=== PATIENT | male | born 1985 | race Caucasian/White ===

== ENCOUNTER 2017-08-29 06:25 | Emergency (ER) | payer OTHER ==
[2017-08-29 06:34] VITALS: RESP 18; TEMP 98
[2017-08-29 06:53] LABS: Appearance,Urine Clear (Clear); Bilirubin,Urine Negative (Negative); Blood,Urine Moderate (Negative); Color,Urine Yellow; Glucose,Urine (UA) Negative (Negative); Ketones,Urine Negative (Negative); Leukocyte Esterase,Urine Negative (Negative); Mucus,Urine Rare /hpf; Nitrite,Urine Negative (Negative); Protein,Urine Negative (Negative); RBC,Urine 136 /hpf (0-5); Specific Gravity,Urine 1.022 (1.001-1.035); Urobilinogen,Urine <2.0 mg/dL (<2.0); WBC,Urine 5 /hpf (0-5)
[2017-08-29 07:41] LABS: Basophils % (A) 1 %; Eosinophils # (A) 0.2 k/uL (0-0.7); Eosinophils % (A) 4 %; HCT 45.8 % (39.0-53.0); HGB 15.7 gm/dL (13.0-17.5); Lymphocytes # (A) 0.9 k/uL (1.0-4.8); Lymphocytes % (A) 22 %; MCH 31.9 pg (25.0-35.0); MCHC 34.3 g/dL (31.0-37.0); Mean Platelet Volume 7.2; Monocytes # (A) 0.4 k/uL (0-1.0); Monocytes % (A) 9 %; Neutrophils # (A) 2.5 k/uL (1.3-7.7); Neutrophils % (A) 61 %; Platelet Count 222 k/uL (150-450); RBC 4.93 m/uL (4.30-5.90); RDW 12.3 % (11.5-15.5); WBC 4.2 k/uL (3.8-10.6)
--- NOTE | 2017-08-29 07:44 | ED ---
General Adult HPI - General Chief complaint: Urogenital Stated complaint: Male Time Seen by Provider: 08/29/17 07:00 Source: patient, RN notes reviewed Mode of arrival: ambulatory Limitations: no limitations - History of Present Illness Initial comments: This is a 31-year-old male who presents emergency Department complaining that he has gross hematuria. Patient states she was wearing some coffee at a restaurant when he felt some moisture in his underwear he looked down and there was blood coming through his pants. Patient states she's had no pains had no trauma to the area. Patient states he is sexually active but with his and only his . Patient denies any back pain that's new or acute. Patient denies any fever chills. Patient states happened once before high school after heavy lifting session but that was over 12 years ago. Patient denies any medical problems any clotting problems. - Related Data Allergies Allergy/AdvReac Type Severity Reaction Status Date / Time No Known Allergies Allergy Verified 08/29/17 06:34 Review of Systems ROS Statement: Those systems with pertinent positive or pertinent negative responses have been documented in the HPI. ROS Other: All systems not noted in ROS Statement are negative. Past Medical History Past Medical History: No Reported History History of Any Multi-Drug Resistant Organisms: None Reported Past Surgical History: No Surgical Hx Reported Past Psychological History: No Psychological Hx Reported Smoking Status: Never smoker Past Alcohol Use History: Occasional Past Drug Use History: Marijuana General Exam - General Exam Comments Initial Comments: GENERAL: Patient is well-developed and well-nourished. Patient is nontoxic and well- hydrated and is in no acute distress. ENT: Neck is soft and supple. No significant lymphadenopathy is noted. Oropharynx is clear. Moist mucous membranes. Neck has full range of motion without eliciting any pain. EYES: The sclera were anicteric and conjunctiva were pink and moist. Extraocular movements were intact and pupils were equal round and reactive to light. Eyelids were unremarkable. PULMONARY: Unlabored respirations. Good breath sounds bilaterally. No audible rales rhonchi or wheezing was noted. CARDIOVASCULAR: There is a regular rate and rhythm without any murmurs gallops or rubs. ABDOMEN: Soft and nontender with normal bowel sounds. GENITALIA: No lymphadenopathy was noted lesions were noted no gross hematuria was noted no tenderness along the shaft or the testicles. Patient did call me back into the room to note that there was some fresh blood on his underwear and I did note that. I did not see any source of the blood however SKIN: Skin is clear with no lesions or rashes and otherwise unremarkable. NEUROLOGIC: Patient is alert and oriented x3. Cranial nerves II through XII are grossly intact. Motor and sensory are also intact. Normal speech, volume and content. Symmetrical smile. MUSCULOSKELETAL: Normal extremities with adequate strength and full range of motion. LYMPHATICS: No significant lymphadenopathy is noted PSYCHIATRIC: Normal psychiatric evaluation. Limitations: no limitations Course Vital Signs 08/29/17 06:30 Temperature 98 F Pulse Rate 74 Respiratory 18 Rate Blood Pressure 147/69 O2 Sat by Pulse 98 Oximetry Medical Decision Making - Medical Decision Making CT of the abdomen and pelvis showed 2 complex lesions in the left kidney. Urine only had 5 white cells with 136 red cells. I spoke with Dr. Racquel Clement wants to see the patient next week patient agreed to this. - Lab Data Result diagrams: 08/29/17 07:32 08/29/17 07:32 Lab Results 08/29/17 08/29/17 08/29/17 Range/Units 06:35 07:32 07:32 WBC 4.2 (3.8-10.6) k/uL RBC 4.93 (4.30-5.90) m/uL Hgb 15.7 (13.0-17.5) gm/dL Hct 45.8 (39.0-53.0) % MCV 93.0 (80.0-100.0) fL MCH 31.9 (25.0-35.0) pg MCHC 34.3 (31.0-37.0) g/dL RDW 12.3 (11.5-15.5) % Plt Count 222 (150-450) k/uL Neutrophils % 61 % Lymphocytes % 22 % Monocytes % 9 % Eosinophils % 4 % Basophils % 1 % Neutrophils # 2.5 (1.3-7.7) k/uL Lymphocytes # 0.9 L (1.0-4.8) k/uL Monocytes # 0.4 (0-1.0) k/uL Eosinophils # 0.2 (0-0.7) k/uL Basophils # 0.0 (0-0.2) k/uL PT (9.0-12.0) sec INR (<1.2) APTT (22.0-30.0) sec Sodium 142 (137-145) mmol/L Potassium 4.3 (3.5-5.1) mmol/L Chloride 108 H (98-107) mmol/L Carbon Dioxide 21 L (22-30) mmol/L Anion Gap 13 mmol/L BUN 19 (9-20) mg/dL Creatinine 0.79 (0.66-1.25) mg/dL Est GFR (CKD-EPI)AfAm >90 (>60 ml/min/1.73 sqM) Est GFR (CKD-EPI)NonAf >90 (>60 ml/min/1.73 sqM) Glucose 100 H (74-99) mg/dL Calcium 9.1 (8.4-10.2) mg/dL Total Bilirubin 0.4 (0.2-1.3) mg/dL AST 41 (17-59) U/L ALT 49 (21-72) U/L Alkaline Phosphatase 72 (38-126) U/L Total Protein 6.6 (6.3-8.2) g/dL Albumin 4.3 (3.5-5.0) g/dL Urine Color Yellow Urine Appearance Clear (Clear) Urine pH 6.0 (5.0-8.0) Ur Specific [place] 1.022 (1.001-1.035) Urine Protein Negative (Negative) Urine Glucose (UA) Negative (Negative) Urine Ketones Negative (Negative) Urine Blood Moderate H (Negative) Urine Nitrite Negative (Negative) Urine Bilirubin Negative (Negative) Urine Urobilinogen <2.0 (<2.0) mg/dL Ur Leukocyte Esterase Negative (Negative) Urine RBC 136 H (0-5) /hpf Urine WBC 5 (0-5) /hpf Urine Mucus Rare H (None) /hpf 08/29/17 Range/Units 07:32 WBC (3.8-10.6) k/uL RBC (4.30-5.90) m/uL Hgb (13.0-17.5) gm/dL Hct (39.0-53.0) % MCV (80.0-100.0) fL MCH (25.0-35.0) pg MCHC (31.0-37.0) g/dL RDW (11.5-15.5) % Plt Count (150-450) k/uL Neutrophils % % Lymphocytes % % Monocytes % % Eosinophils % % Basophils % % Neutrophils # (1.3-7.7) k/uL Lymphocytes # (1.0-4.8) k/uL Monocytes # (0-1.0) k/uL Eosinophils # (0-0.7) k/uL Basophils # (0-0.2) k/uL PT 10.5 (9.0-12.0) sec INR 1.1 (<1.2) APTT 25.2 (22.0-30.0) sec Sodium (137-145) mmol/L Potassium (3.5-5.1) mmol/L Chloride (98-107) mmol/L Carbon Dioxide (22-30) mmol/L Anion Gap mmol/L BUN (9-20) mg/dL Creatinine (0.66-1.25) mg/dL Est GFR (CKD-EPI)AfAm (>60 ml/min/1.73 sqM) Est GFR (CKD-EPI)NonAf (>60 ml/min/1.73 sqM) Glucose (74-99) mg/dL Calcium (8.4-10.2) mg/dL Total Bilirubin (0.2-1.3) mg/dL AST (17-59) U/L ALT (21-72) U/L Alkaline Phosphatase (38-126) U/L Total Protein (6.3-8.2) g/dL Albumin (3.5-5.0) g/dL Urine Color Urine Appearance (Clear) Urine pH (5.0-8.0) Ur Specific [place] (1.001-1.035) Urine Protein (Negative) Urine Glucose (UA) (Negative) Urine Ketones (Negative) Urine Blood (Negative) Urine Nitrite (Negative) Urine Bilirubin (Negative) Urine Urobilinogen (<2.0) mg/dL Ur Leukocyte Esterase (Negative) Urine RBC (0-5) /hpf Urine WBC (0-5) /hpf Urine Mucus (None) /hpf Disposition Clinical Impression: Gross hematuria, Kidney lesion Disposition: HOME SELF-CARE Condition: Good Instructions: Hematuria (ED) Is patient prescribed a controlled substance at d/c from ED?: No Referrals: Ambrocio Clement MD [STAFF PHYSICIAN] - 1-2 days Time of Disposition: 08:54
[2017-08-29 07:54] LABS: INR 1.1 (<1.2); Partial Thromboplastin Time 25.2 sec (22.0-30.0); Prothrombin Time 10.5 sec (9.0-12.0)
[2017-08-29 08:17] LABS: ALT 49 U/L (21-72); AST 41 U/L (17-59); Albumin 4.3 g/dL (3.5-5.0); Alkaline Phosphatase 72 U/L (38-126); Anion Gap 13 mmol/L; Blood Urea Nitrogen 19 mg/dL (9-20); Calcium 9.1 mg/dL (8.4-10.2); Carbon Dioxide 21 mmol/L (22-30); Chloride 108 mmol/L (98-107); Glucose 100 mg/dL (74-99); Potassium 4.3 mmol/L (3.5-5.1); Sodium 142 mmol/L (137-145); Total Bilirubin 0.4 mg/dL (0.2-1.3); Total Protein 6.6 g/dL (6.3-8.2)
--- NOTE | 2017-08-29 08:38 | CT ---
EXAMINATION TYPE: CT abdomen pelvis w con DATE OF EXAM: 08/29/2017 REFERENCE: NONE HISTORY: Pain HISTORY: Gross Hematuria REFERENCE: NONE CT DLP: 770.9 mGy Automated exposure control for dose reduction was used. TECHNIQUE: Helical acquisition through the abdomen and pelvis was obtained following the oral ingesti on of without Oral Contrast and following intravenous administration of 100 mL of Isovue 300. The scott a was reformatted in axial, coronal and sagittal projections. FINDINGS: Visualized portions of the lungs are clear. There is no pleural or pericardial fluid. The heart is not enlarged. There is a small hiatal hernia present. Within the abdomen, the liver, spleen and gallbladder are normal. Both adrenal glands are normal. There is a low attenuating 6.7 mm lesion in the upper pole of the right kidney, too small accurately characterize. There is a complex, 1.6 cm lesion in the posterior aspect of the mid polar region of th e left kidney and a second 1.4 cm complex lesion in the anterior aspect of the middle pole of the lef t kidney. The pancreas is unremarkable. Within the pelvis, the bladder is not distended. Both large and small bowel are unremarkable. The appendix is normal. No free fluid and no free air is seen. There is mild facet arthropathy in the L5-S1 facets. IMPRESSION: 1. 2 COMPLEX LESIONS IN THE LEFT KIDNEY THERE ARE NOT SIMPLE CYSTS. FURTHER INVESTIGATION IS SUGGESTE D. 2. SMALL HIATAL HERNIA. 3. MILD DEGENERATIVE CHANGE WITHIN THE L5-S1 FACETS.
[2017-08-29 09:04] VITALS: BP 132/70; PULSE 70
[2017-08-30 13:47] LABS: N. gonorrhoeae,PCR Negative (Neg,Equiv); Neisseria Source Urine
[2017-08-30 13:48] LABS: C. trachomatis,PCR Negative (Neg,Equiv); Chlamydia trachomatis Source Urine
== END 2017-08-29 09:04 | disposition home or self-care (01) ==
LOC: EC 06:25
DX: N28.9 Disorder of kidney and ureter, unspecified (principal); R31.0 Gross hematuria
CPT/HCPCS: 36415; 80053; 85025; 85610; 85730; 81001; 87491; 87591; 74177; 99284; Q9967

== ENCOUNTER 2017-09-18 17:10 | Emergency (ER) | payer OTHER ==
[2017-09-18 17:22] VITALS: RESP 18
[2017-09-18 17:40] LABS: Appearance,Urine Clear (Clear); Bilirubin,Urine Negative (Negative); Blood,Urine Negative (Negative); Color,Urine Colorless; Glucose,Urine (UA) Negative (Negative); Ketones,Urine Negative (Negative); Leukocyte Esterase,Urine Negative (Negative); Nitrite,Urine Negative (Negative); PH, Urine 6.5 (5.0-8.0); Protein,Urine Negative (Negative); Specific Gravity,Urine 1.002 (1.001-1.035); Urobilinogen,Urine <2.0 mg/dL (<2.0)
--- NOTE | 2017-09-18 18:23 | ED ---
Male Urogenital HPI - General Chief complaint: Urogenital Stated complaint: MALE Time Seen by Provider: 09/18/17 17:44 Source: patient Mode of arrival: ambulatory Limitations: no limitations - History of Present Illness Initial comments: 31-year-old male patient presents to the emergency department today for evaluation of bleeding from the penis. Patient states that this has been going on since the beginning of August. Patient states that he will have blood draining from the penis either before or after he urinates. Patient states he has been passing clots. Patient states the blood comes out spontaneously and now while he is trying to urinate. He has been having increased low back pain with this and right flank pain. Patient states that he was seen and evaluated here in 08/29/2017, had blood work, urinalysis, and computed tomography scan performed. States that they found 2 lesions on the left kidney but didn't feel they're related to his bleeding. States he has follow-up with urology and had a urethroscope performed, they did find a small area of irritation but didn't believe this is where the bleeding was coming from either. He is scheduled for a cystoscope on October 08. Has had MRI to evaluate lesions on the kidney, they appear to be complex cyst and the assistant golf professional believes these should be removed. Patient states that he continues to have symptoms and is becoming frustrated because he is not getting answers. States that he is urinating frequently and having dribbling. He is reporting dysuria and bilateral groin pain. States he the clots are becoming larger. He does not feel like he is retaining urine. Denies any fevers or chills with this. He denies any nausea or vomiting. Denies any abdominal pain. He denies any instrumentation other than for medical purposes. States he is in a monogamous relationship and has no concern for STIs. Patient denies any recent rash, shortness breath, chest pain, diarrhea, constipation, back pain, numbness, tingling, dizziness, weakness , headache, visual changes, or any other complaints. - Related Data Home Medications Medication Instructions Recorded Confirmed No Known Home Medications 09/18/17 09/18/17 Allergies Allergy/AdvReac Type Severity Reaction Status Date / Time No Known Allergies Allergy Verified 09/18/17 17:46 Review of Systems ROS Statement: Those systems with pertinent positive or pertinent negative responses have been documented in the HPI. ROS Other: All systems not noted in ROS Statement are negative. Past Medical History Past Medical History: No Reported History History of Any Multi-Drug Resistant Organisms: None Reported Past Surgical History: No Surgical Hx Reported Past Psychological History: No Psychological Hx Reported Smoking Status: Never smoker Past Alcohol Use History: Occasional Past Drug Use History: Marijuana General Exam Limitations: no limitations General appearance: alert, in no apparent distress, other (Social well-developed , well-nourished adult male patient in no acute distress. Vital signs upon presentation are temperature 97.9F, pulse 61, respirations 18, blood pressure 131/75, pulse ox 98% on room air.) Eye exam: Present: normal appearance, PERRL, EOMI. Absent: scleral icterus, conjunctival injection, periorbital swelling ENT exam: Present: normal exam, normal oropharynx, mucous membranes moist Respiratory exam: Present: normal lung sounds bilaterally. Absent: respiratory distress, wheezes, rales, rhonchi, stridor Cardiovascular Exam: Present: regular rate, normal rhythm, normal heart sounds. Absent: systolic murmur, diastolic murmur, rubs, gallop, clicks GI/Abdominal exam: Present: soft, tenderness (Bilateral inguinal tenderness, no bulging), normal bowel sounds, other (No inguinal lymphadenopathy.). Absent: distended, guarding, rebound, rigid Back exam: Present: normal inspection. Absent: CVA tenderness (R), CVA tenderness (L) Neurological exam: Present: alert, oriented X3, CN II-XII intact Psychiatric exam: Present: normal affect, normal mood Skin exam: Present: warm, dry, intact, normal color. Absent: rash Course Vital Signs 09/18/17 17:17 Temperature 97.9 F Pulse Rate 61 Respiratory 18 Rate Blood Pressure 131/75 O2 Sat by Pulse 98 Oximetry Medical Decision Making - Medical Decision Making 31-year-old male patient presented to the emergency department today for evaluation of bleeding from the urethra. Patient has had workup of an multiple ERs and with urology. States he is not getting answers fast enough. Physical examination at this time did reveal some bilateral inguinal tenderness. No inguinal lymphadenopathy. No abdominal tenderness. No flank tenderness. I did review results from his visit here computed tomography scan showed 2 lesions on the left kidney. No evidence of stones. Negative STI workup. Urinalysis today was free of any blood or evidence of infection. I reviewed labs performed at [facility] on 09/14/17 and there was no evidence of anemia or coagulopathy. Vital signs are stable. I did discuss the case with Dr. Pfe[facility] and he states that as long as patient is hemodynamically stable there is not much to be done in the emergency department he should follow up. Patient does have an appointment with Dr. Zamudio on Thursday. I did discuss results with the patient he is instructed to follow-up on Thursday as he has planned. He is instructed to return here immediately for any new, worsening, or concerning symptoms. He verbalizes understanding and agrees with this plan. - Lab Data Lab Results 09/18/17 Range/Units 17:25 Urine Color Colorless Urine Appearance Clear (Clear) Urine pH 6.5 (5.0-8.0) Ur Specific [place] 1.002 (1.001-1.035) Urine Protein Negative (Negative) Urine Glucose (UA) Negative (Negative) Urine Ketones Negative (Negative) Urine Blood Negative (Negative) Urine Nitrite Negative (Negative) Urine Bilirubin Negative (Negative) Urine Urobilinogen <2.0 (<2.0) mg/dL Ur Leukocyte Esterase Negative (Negative) Disposition Clinical Impression: Penile bleeding Disposition: HOME SELF-CARE Condition: Good Instructions: Hematuria (ED) Additional Instructions: Follow-up as you have planned with Dr. Palumbo on Thursday. Return here immediately for any new, worsening, or concerning symptoms. Is patient prescribed a controlled substance at d/c from ED?: No Referrals: None,Stated [Primary Care Provider] - 1-2 days Marlon Zamudio MD [STAFF PHYSICIAN] - 1-2 days Time of Disposition: 18:23
[2017-09-18 18:49] VITALS: BP 147/92; PULSE 67; TEMP 97.3
== END 2017-09-18 18:48 | disposition home or self-care (01) ==
LOC: EC 17:10
DX: N48.89 Other specified disorders of penis (principal); N28.9 Disorder of kidney and ureter, unspecified; M54.5 Low back pain; R10.9 Unspecified abdominal pain
CPT/HCPCS: 81003; 99283

== ENCOUNTER 2018-03-27 09:15 | Emergency (ER) | payer OTHER ==
[2018-03-27 09:23] VITALS: BP 162/91; PULSE 86; RESP 18; TEMP 98.5
[2018-03-27] MEDS ORDERED: SODIUM CHLORIDE 0.9% 1,000 ML IV STA (09:31)
[2018-03-27] MEDS ORDERED: fentaNYL (PF) 50 MCG/ML 2 ML AMP IVP STA (09:32)
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
[2018-03-27 09:51] LABS: Basophils % (A) 0 %; Eosinophils # (A) 0.1 k/uL (0-0.7); Eosinophils % (A) 1 %; HCT 46.6 % (39.0-53.0); HGB 16.1 gm/dL (13.0-17.5); Lymphocytes % (A) 11 %; MCH 31.5 pg (25.0-35.0); MCHC 34.7 g/dL (31.0-37.0); MCV 90.8 fL (80.0-100.0); Mean Platelet Volume 6.4; Monocytes # (A) 0.6 k/uL (0-1.0); Monocytes % (A) 6 %; Neutrophils # (A) 7.8 k/uL (1.3-7.7); Neutrophils % (A) 81 %; Platelet Count 222 k/uL (150-450); RBC 5.13 m/uL (4.30-5.90); RDW 12.3 % (11.5-15.5); WBC 9.7 k/uL (3.8-10.6)
[2018-03-27 10:01] LABS: ALT 51 U/L (21-72); AST 36 U/L (17-59); Albumin 4.6 g/dL (3.5-5.0); Alcohol <10 mg/dL; Alkaline Phosphatase 91 U/L (38-126); Amylase 59 U/L (30-110); Anion Gap 10 mmol/L; Blood Urea Nitrogen 14 mg/dL (9-20); Calcium 9.4 mg/dL (8.4-10.2); Carbon Dioxide 21 mmol/L (22-30); Chloride 107 mmol/L (98-107); Glucose 109 mg/dL (74-99); Lipase 67 U/L (23-300); Partial Thromboplastin Time 23.6 sec (22.0-30.0); Potassium 4.4 mmol/L (3.5-5.1); Prothrombin Time 10.4 sec (9.0-12.0); Sodium 138 mmol/L (137-145); Total Bilirubin 0.6 mg/dL (0.2-1.3); Total Protein 7.3 g/dL (6.3-8.2)
[2018-03-27 10:11] LABS: Creatine Kinase 287 U/L (55-170)
[2018-03-27 10:24] LABS: Creatine Kinase MB 2.5 ng/mL (0.0-2.4); Troponin I <0.012 ng/mL (0.000-0.034)
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
[2018-03-27] MEDS ORDERED: LIDOCAINE 5% PATCH TOPICAL STA (10:48)
[2018-03-27 11:40] LABS: Appearance,Urine Clear (Clear); Bilirubin,Urine Negative (Negative); Blood,Urine Negative (Negative); Color,Urine Light Yellow; Glucose,Urine (UA) Negative (Negative); Ketones,Urine Negative (Negative); Leukocyte Esterase,Urine Negative (Negative); Nitrite,Urine Negative (Negative); Protein,Urine Negative (Negative); Specific Gravity,Urine 1.016 (1.001-1.035); Urobilinogen,Urine <2.0 mg/dL (<2.0)
[2018-03-27] MEDS ORDERED: HYDROcodone/APAP 5-325MG 1 EACH TAB PO STA (11:49)
[2018-03-27 11:55] LABS: Amphetamine Screen,Urine Not Detected (NotDetected); Barbiturate Screen,Urine Not Detected (NotDetected); Benzodiazepines Screen,Urine Not Detected (NotDetected); Cocaine Screen,Urine Not Detected (NotDetected); Methadone Screen, Urine Not Detected (NotDetected); Opiate Screen,Urine Not Detected (NotDetected); Oxycodone Screen, Urine Not Detected (NotDetected); Phencyclidine Screen,Urine Not Detected (NotDetected); Tricyclic Antidepressant,Urine Not Detected (NotDetected); Urn Cannabinoid Scrn Not Detected (NotDetected)
== END 2018-03-27 13:50 | disposition home or self-care (01) ==
LOC: EC 09:15
DX: S32.039A Unspecified fracture of third lumbar vertebra, initial encounter for closed fracture (principal); V86.52XA Driver of snowmobile injured in nontraffic accident, initial encounter; Y92.410 Unspecified street and highway as the place of occurrence of the external cause
CPT/HCPCS: 36415; 93005; 86900; 86901; 80053; 82150; 82550; 82553; 83690; 84484; 85025; 85610; 85730; 86850; 81003; 80306; 80320; 72125; 70450; 71260; 74177; 99284; 96374; 96361; J3010; Q9967

== ENCOUNTER → 2019-01-10 | Outpatient (CLI) | payer OTHER ==
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
== END | disposition home or self-care (01) ==
LOC: RADMRIMAIN 18:31
PROVIDERS: ATTEND Physician Assistant Medical
DX: M51.26 Other intervertebral disc displacement, lumbar region (principal); M51.27 Other intervertebral disc displacement, lumbosacral region
CPT/HCPCS: 72148

== ENCOUNTER 2019-02-08 04:21 | Emergency (ER) | payer OTHER ==
[2019-02-08 04:29] VITALS: BP 133/78; PULSE 65; RESP 18; TEMP 97.6
[2019-02-08] MEDS ORDERED: PROPARACAINE 0.5% OPHTH DROPS 15 ML BTL BOTH EYES SCH (04:30)
--- NOTE | 2019-02-08 04:59 | ED ---
General Adult HPI - General Chief complaint: Eye Problems Stated complaint: FB Rt Eye Time Seen by Provider: 02/08/19 04:30 Source: patient, RN notes reviewed, old records reviewed Mode of arrival: ambulatory Limitations: no limitations - History of Present Illness Initial comments: 33-year-old male presents with suspected foreign body in his right high. 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 He believes the pain is of metal may have fallen into his right eye. He states he is able to see this with a flashlight. He does not wear contacts. He's having pain in the side and has tried to remove the foreign body with the butt end of a cigarette without success. - Related Data Allergies Allergy/AdvReac Type Severity Reaction Status Date / Time No Known Allergies Allergy Verified 02/08/19 04:29 Review of Systems ROS Statement: Those systems with pertinent positive or pertinent negative responses have been documented in the HPI. ROS Other: All systems not noted in ROS Statement are negative. Past Medical History Past Medical History: No Reported History Additional Past Medical History / Comment(s): 2 complex cysts L kidney History of Any Multi-Drug Resistant Organisms: None Reported Past Surgical History: No Surgical Hx Reported Past Psychological History: No Psychological Hx Reported Smoking Status: Never smoker Past Alcohol Use History: None Reported Past Drug Use History: Marijuana General Exam Limitations: no limitations General appearance: alert, in no apparent distress Head exam: Present: atraumatic, normocephalic Eye exam: Present: PERRL, conjunctival injection, other (right eye, corneal foreign body in the 10 o'clock position with fluorescein uptake surrounding it consistent with abrasion from attempts at removal, negative Carly's.). Absent: periorbital swelling Course Vital Signs 02/08/19 04:24 Temperature 97.6 F Pulse Rate 65 Respiratory 18 Rate Blood Pressure 133/78 O2 Sat by Pulse 96 Oximetry Medical Decision Making - Medical Decision Making 33-year-old male with bilateral foreign body in the right eye Percocet the 10 o'clock position of the cornea within the visual field. Metallic foreign body is removed with contact applicator. There is a rust ring present. Due to the proximity to the visual access did recommend that patient follow closely with ophthalmology for rust ring removal. He is placed on erythromycin ointment and will call for an appointment with ophthalmology within the next several hours. patient had both safety glasses and a fascial time, I suspect this form body fel l into his eye was not a high-speed projectile. I will contact on-call ophthalmology regarding close follow-up for this patient. Disposition Clinical Impression: Corneal abrasion, Foreign body of cornea Disposition: HOME SELF-CARE Condition: Good Instructions (If sedation given, give patient instructions): Eye Foreign Body (ED), Abrasion (ED) Is patient prescribed a controlled substance at d/c from ED?: No Referrals: [facility],Clinic [Primary Care Provider] - 1-2 days Elkin Merino MD [STAFF PHYSICIAN] - 1-2 days Time of Disposition: 04:59
[2019-02-08] MEDS ORDERED: ERYTHROMYCIN 5 MG/GM OPHTH OINT 1 GM TUBE RIGHT EYE SCH (05:00)
== END 2019-02-08 05:12 | disposition home or self-care (01) ==
LOC: EC 04:21
DX: T15.01XA Foreign body in cornea, right eye, initial encounter (principal); W20.8XXA Other cause of strike by thrown, projected or falling object, initial encounter; Y93.89 Activity, other specified
CPT/HCPCS: 65220; 99283

== ENCOUNTER 2023-04-16 06:57 | Day surgery (SDC) | payer BC ==
--- NOTE | 2023-04-16 06:38 | P.GSHP ---
History of Present Illness H&P Date: 04/16/23 CHIEF COMPLAINT: Rectal bleeding. HISTORY OF PRESENT ILLNESS: The patient is a 37-year-old male who presents for rectal bleeding over 6 month. Lower endoscopy was offered for further evaluation and management. PAST MEDICAL HISTORY: Please see list. PAST SURGICAL HISTORY: Please see list. MEDICATIONS: Please see list. ALLERGIES: Please see list. SOCIAL HISTORY: No illicit drug use FAMILY HISTORY: No reports of Crohn disease or ulcerative colitis. REVIEW OF ORGAN SYSTEMS: CONSTITUTIONAL: No reports of fevers or chills. PHYSICAL EXAM: VITAL SIGNS: Stable GENERAL: Well-developed pleasant in no acute distress. HEENT: No scleral icterus. Extraocular movements grossly intact. Moist buccal mucosa. NECK: Supple without lymphadenopathy. CHEST: Unlabored respirations. Equal bilateral excursions. CARDIOVASCULAR: Regular rate and rhythm. Distal 2+ pulses. ABDOMEN: Soft, nontender, nondistended. MUSCULOSKELETAL: No clubbing, cyanosis, or edema. ASSESSMENT: 1. Rectal bleeding. PLAN: 1. Risk of adenomas and tumors were also reviewed. Colonoscopy was advised. 2. GoLytely prep was reviewed. Past Medical History Past Medical History: No Reported History Additional Past Medical History / Comment(s): 2 complex cysts L kidney History of Any Multi-Drug Resistant Organisms: None Reported Past Surgical History: No Surgical Hx Reported Past Psychological History: No Psychological Hx Reported Past Alcohol Use History: None Reported Past Drug Use History: Marijuana Medications and Allergies Home Medications Medication Instructions Recorded Confirmed Type No Known Home Medications 12/08/22 12/08/22 History Allergies Allergy/AdvReac Type Severity Reaction Status Date / Time No Known Allergies Allergy Verified 12/08/22 17:43
[2023-04-16] MEDS: IV FLUID CONTINUATION 1,000 ML IV ONE (07:42)
[2023-04-16] MEDS ORDERED: GLYCOPYRROLATE 0.2 MG/ML 2 ML VIAL ONE (07:44)
[2023-04-16] MEDS ORDERED: PROPOFOL 10 MG/ML 20 ML VIAL IV ONE (07:44)
[2023-04-16] MEDS ORDERED: LIDOCAINE 1% INJ 10MG/ML (20 ML MDV) ONE (07:44)
[2023-04-16 07:53] VITALS: RESP 16; TEMP 97
--- NOTE | 2023-04-16 08:08 | P.PCN ---
Date of Procedure: 04/16/23 Description of Procedure: PREOPERATIVE DIAGNOSIS: Rectal bleeding Rectal pain POSTOPERATIVE DIAGNOSIS: Internal hemorrhoids, grade 3 External hemorrhoids, grade 3 OPERATION: Colonoscopy to the cecum, ileocecal valve and appendiceal orifice. SURGEON: Pam Gautam MD. ANESTHESIA: MAC. INDICATIONS: The patient is a 37-year-old female who presents with rectal bleeding and rectal pain. Benefits and risks were described and informed consent was obtained. DESCRIPTION OF PROCEDURE: The patient had undergone GoLytely. The patient had been brought into the operating room and laid in the left lateral decubitus position. After adequate intravenous sedation, the rectum was examined with 2% lidocaine jelly. External hemorrhoids were encountered. The rectal tone was within normal limits. No lesions were palpated in the rectal vault. An Olympus colonoscope was advanced until the cecum, ileocecal valve and appendiceal orifice were clearly viewed. The prep was fair. No scattered diverticulosis was encountered. No colonic polyps were found. Retroflexion of the scope demonstrated grade 3 internal hemorrhoids without active bleeding or inflammation. The colon was desufflated. The patient had tolerated the procedure well. Withdrawal time was over 6 minutes. FINDINGS: Aronchick preparation quality scale 2+ (1-5) Internal hemorrhoids, grade 3 External prolapsed hemorrhoids, grade 3 No arteriovenous malformations. No adenomatous polyps. RECOMMENDATIONS: Repeat colonoscopy 10 years at age [id number] Plan - Discharge Summary New Discharge Prescriptions: No Action No Known Home Medications Discharge Medication List No Known Home Medications 12/08/22 [History] Follow up Appointment(s)/Referral(s): Pam Gautam MD [STAFF PHYSICIAN] - 05/12/23 4:30 pm Patient Instructions/Handouts: *Surgery [facility] - (Anesthesia) Discharge Instructions Outpatient Surgery, Colonoscopy (DC) Activity/Diet/Wound Care/Special Instructions: Repeat colonoscopy at age 46, 10 years, 2032 Discharge Disposition: HOME SELF-CARE
[2023-04-16 08:26] VITALS: BP 117/70; PULSE 69
== END 2023-04-16 09:05 | disposition home or self-care (01) ==
LOC: ORWHC2ENDO 06:57
PROVIDERS: ATTEND Surgery Plastic and Reconstructive Surgery
DX: K64.2 Third degree hemorrhoids (principal); K64.4 Residual hemorrhoidal skin tags; F12.90 Cannabis use, unspecified, uncomplicated; Z98.890 Other specified postprocedural states
CPT/HCPCS: 45378; J2001; J2704

== ENCOUNTER → 2023-11-24 | Outpatient (CLI) | payer OTHER ==
--- NOTE | 2023-12-04 08:33 | MR ---
EXAMINATION TYPE: MR humerus RT without IV contrast DATE OF EXAM: 11/24/2023 COMPARISON: None HISTORY: Abnormal xray of right proximal humerus, 10mm sclerotic lesion, pain. Standard multiplanar, multisequence MRI departmental protocol Multiplanar, multisequence images of the right humerus were acquired without contrast. Diffusion weig hted imaging was performed. FINDINGS: Ovoid 10 mm hypointense T1/hypointense T2 lesion within the proximal diaphysis of the humerus. No xena rounding bone marrow edema or cortical disruption. Additional 10 mm lobular hyperintense T2/hypointen se T1 lesion in the proximal humeral diaphysis without surrounding bone marrow edema. No other osseou s lesions within the humerus. Moderate focal bone marrow edema about the acromioclavicular joint. No discrete fracture visualized. No significant joint effusion. Tendons and musculature are intact. IMPRESSION: 1. Probable bone island within the proximal humeral diaphysis. Recommend confirmation with CT or radi ographs. 2. Additional nonaggressive nonspecific lobular hyperintense T2 lesion in the proximal humeral diaphy sis. Postcontrast imaging could be obtained if desired. 3. Moderate bone marrow edema about the acromioclavicular joint. [facility], Workstation: [email or web address], 12/02/2023 9:36 PM
== END | disposition home or self-care (01) ==
LOC: RADMRIMAIN 16:08
PROVIDERS: ATTEND Family Medicine
DX: R93.6 Abnormal findings on diagnostic imaging of limbs